=== PATIENT | female | born 1990 | race Caucasian/White ===

== ENCOUNTER 2024-03-16 18:54 | Emergency (ER) | payer OTHER ==
[~2024-03-16] VITALS: Ht 152.4 cm; Wt 83.9 kg
[2024-03-16] MEDS: ONDANSETRON 4MG 2ML VIAL IV ONE (19:48)
[2024-03-16] MEDS: KETOROLAC 30 MG/ML 1ML VIAL IV ONE (19:48)
[2024-03-16] MEDS: dexAMETHasone 20MG/5ML VIAL IV ONE (19:48)
[2024-03-16] MEDS: NS 1,000 ML IV ONE (19:49)
[2024-03-16] MEDS: BENZONATATE 100MG CAPSULE PO ONE (19:49)
[2024-03-16 19:50] LABS: BASO % 0.4 % (0.0-1.0); EOS % 0.1 % (0.0-3.0); HEMATOCRIT 31.8 % (36.0-47.0); HEMOGLOBIN 9.6 g/dl (12.0-15.5); LYMPH # 1.9 10^3/uL (1.5-5.0); LYMPH % 23.3 % (24.0-44.0); MEAN CORPUSCULAR HEMOGLOBIN 21.9 pg (27.0-33.0); MEAN CORPUSCULAR HGB CONC 30.2 g/dl (32.0-36.5); MEAN CORPUSCULAR VOLUME 72.4 fl (80.0-96.0); MONO # 0.9 10^3/uL (0.0-0.8); MONO % 10.9 % (2.0-8.0); NEUTROPHILS # 5.3 10^3/uL (1.5-8.5); NEUTROPHILS % 64.7 % (36.0-66.0); PLATELET COUNT, AUTOMATED 287 10^3/uL (150-450); RED BLOOD COUNT 4.39 10^6/uL (4.00-5.40); WHITE BLOOD COUNT 8.1 10^3/uL (4.0-10.0)
[2024-03-16] MEDS: IPRATROPIUM 0.5MG/ALBUTEROL 2.5MG INH SOL UD 3ML (DUONEB) NEB ONE (19:54)
[2024-03-16 20:16] LABS: ALBUMIN 3.4 G/DL (3.2-5.2); ALKALINE PHOSPHATASE 76 U/L (46-116); ALT/SGPT 21 U/L (7.0-40); AST/SGOT 22 U/L (<34); BILIRUBIN,TOTAL 0.2 MG/DL (0.3-1.2); BLOOD UREA NITROGEN 6 MG/DL (9-23); CALCIUM LEVEL 9.4 MG/DL (8.5-10.1); CARBON DIOXIDE LEVEL 26 MMOL/L (20-31); CHLORIDE LEVEL 108 MMOL/L (98-107); CREATININE FOR GFR 0.72 MG/DL (0.55-1.30); GLOMERULAR FILTRATION RATE > 60.0 (>60); GLUCOSE, FASTING 139 MG/DL (60-100); POTASSIUM SERUM 4.3 MMOL/L (3.5-5.1); SODIUM LEVEL 140 MMOL/L (136-145); TOTAL PROTEIN 7.2 G/DL (5.7-8.2)
[2024-03-16 20:36] VITALS: BP 111/55; TEMP 100.6; O2SAT 98
[2024-03-16] MEDS ORDERED: BENZ200C70 PO (21:12)
[2024-03-16] MEDS ORDERED: VENTAER INH (21:12)
== END 2024-03-16 21:37 | disposition home or self-care (01) ==
LOC: M ED 18:54
DX: J09.X2 Influenza due to identified novel influenza A virus with other respiratory manifestations (principal); Z79.52 Long term (current) use of systemic steroids; Z79.899 Other long term (current) drug therapy
CPT/HCPCS: 71045; 80053; 85025; 87486; 87581; 87633; 87798; 94640; 96361; 96374; 99284; J1100; J1885; J2405

== ENCOUNTER 2024-03-18 12:44 | Emergency (ER) | payer OTHER ==
[~2024-03-18] VITALS: Ht 152.4 cm; Wt 84.3 kg
[~2024-03-18 12:44] MED LIST: BENZ200C70 PO; VENTAER INH
[2024-03-18] MEDS: IPRATROPIUM 0.5MG/ALBUTEROL 2.5MG INH SOL UD 3ML (DUONEB) NEB ONE (16:07)
[2024-03-18] MEDS ORDERED: ZITH250T PO (16:48)
[2024-03-18] MEDS: ACETAMINOPHEN 500 MG TAB PO ONE (17:01)
[2024-03-18] MEDS: AZITHROMYCIN 250MG TABLET PO ONE (17:06)
[2024-03-18 17:08] VITALS: BP 135/76; TEMP 99.9; O2SAT 98
== END 2024-03-18 17:10 | disposition home or self-care (01) ==
LOC: M ED 12:44
DX: J15.7 Pneumonia due to Mycoplasma pneumoniae (principal); Z79.52 Long term (current) use of systemic steroids; Z79.2 Long term (current) use of antibiotics; Z79.899 Other long term (current) drug therapy